=== PATIENT | female | born 1970 | race Caucasian/White ===

== ENCOUNTER 2019-08-09 13:50 | Emergency (ER) | payer OTHER ==
[2019-08-09 14:00] VITALS: BP 150/83; PULSE 76
--- NOTE | 2019-08-09 14:03 | EDM.PDOC ---
ED HPI GENERAL MEDICAL PROBLEM - General Chief Complaint: Chest Pain Stated Complaint: SHORTNESS OF BREATH Time Seen by Provider: 08/09/19 14:03 Source of Information: Reports: Patient History Limitations: Reports: No Limitations - History of Present Illness INITIAL COMMENTS - FREE TEXT/NARRATIVE: patient comes emergency department today from the clinic for further evaluation and care of shortness of breath and palpitations. For the past 2-3 days she feels like her heart is doing "flip-flops" and beating very hard. She does not feel that it is going fast. She has had no weakness dizziness lightheadedness. No headache. No visual disturbances. She feels more short of breath when she gets to the top of the stairs. She has had no recent illness cough congestion sinus congestion sore throat fever chills. Does not have any pain in her chest. She did take some aspirin the last couple of days which she feels helped her symptomology. No abdominal pain no nausea no vomiting. No fever no chills. No diarrhea. She does have a history of hypothyroidism has not had a change in her levothyroxine recently. She has not slept well for the last 6 months he wakes up anywhere from 2-4 times a night and is up for 10-15 minutes at a time and it takes her about 45 minutes to fall asleep. She denies any recent social or family stress. Denies any history of anxiety. She denies any chest pain or pressure. No fatigue or generalized malaise. Left Shoulder Pain Score (Numeric/FACES): 5 - Related Data Allergies Allergy/AdvReac Type Severity Reaction Status Date / Time No Known Allergies Allergy Verified 02/07/16 12:10 Home Meds: Home Meds Levothyroxine Sodium [Synthroid] 125 mcg PO ACBREAKFAST 02/07/16 [History] Past Medical History - Past Surgical History Female Surgical History: Reports: Section Social & Family History - Family History Cardiac: Reports: [facility] ED ROS GENERAL - Review of Systems Review Of Systems: ROS reveals no pertinent complaints other than HPI. ED EXAM, GENERAL - Physical Exam Exam: See Below Exam Limited By: No Limitations General Appearance: Alert, WD/WN, No Apparent Distress Eye Exam: Bilateral Eye: EOMI, Normal Inspection Ears: Normal External Exam Ear Exam: Bilateral Ear: TM normal Nose: Normal Inspection, Normal Mucosa Throat/Mouth: Normal Inspection, Normal Lips Head: Atraumatic, Normocephalic Neck: Normal Inspection, Supple. No: Carotid Bruit Respiratory/Chest: No Respiratory Distress, Lungs Clear, Normal Breath Sounds, No Accessory Muscle Use, Chest Non-Tender Cardiovascular: Normal Peripheral Pulses, Regular Rate, Rhythm GI/Abdominal: Normal Bowel Sounds, Soft, Non-Tender (Female) Exam: Deferred Rectal (Female) Exam: Deferred Back Exam: Normal Inspection, Full Range of Motion Extremities: Normal Inspection, Normal Range of Motion, Normal Capillary Refill Neurological: Alert, Oriented, Normal Cognition, No Motor/Sensory Deficits Psychiatric: Anxious Skin Exam: Warm, Dry, Intact, Normal Color, No Rash EKG INTERPRETATION EKG Date: 08/09/19 Time: 13:57 Rhythm: NSR Rate (Beats/Min): 76 [place]: Normal P-Wave: Present QRS: Normal ST-T: Normal QT: Normal Course - Vital Signs Last Recorded V/S: Last Vital Signs Temp 36.3 C 08/09/19 13:56 Pulse 76 08/09/19 13:56 Resp 18 08/09/19 13:56 BP 150/83 H 08/09/19 13:56 Pulse Ox 97 08/09/19 13:56 - Orders/Labs/Meds Orders: Active Orders 24 hr Category Date Time Status EKG 12 Lead [EKG Documentation Completion] [] URGENT Care 08/09/19 14:04 Active Peripheral IV Care [RC] . DIRECTED Care 08/09/19 14:04 Active Sodium Chloride 0.9% [Saline Flush] Med 08/09/19 14:04 Active 10 ml FLUSH ASDIRECTED PRN Peripheral IV Insertion Adult [OM.PC] Stat Oth 08/09/19 14:04 Ordered Medication Orders Sodium Chloride (Saline Flush) 10 ml FLUSH ASDIRECTED PRN PRN Reason: Keep Vein Open Last Admin: 08/09/19 14:22 Dose: 10 ml Labs: Laboratory Tests 08/09/19 08/09/19 08/09/19 Range/Units 14:10 14:10 14:10 WBC 7.4 (5.0-10.0) 10^3/uL RBC 4.61 (4.2-5.4) 10^6/uL Hgb 13.6 D (12.0-16.0) g/dL Hct 40.2 (37.0-47.0) % MCV 87.2 D (80-100) fL MCH 29.5 (27.0-34.0) pg MCHC 33.8 (33.0-35.0) g/dL Plt Count 291 (150-450) 10^3/uL Neut % (Auto) 62.3 (42.2-75.2) % Lymph % (Auto) 23.0 (20.5-50.1) % [place] % (Auto) 9.4 H (2-8) % Eos % (Auto) 4.9 H (1.0-3.0) % Baso % (Auto) 0.4 (0.0-1.0) % Sodium 138 (135-145) mmol/L Potassium 4.0 (3.6-5.0) mmol/L Chloride 106 (101-111) mmol/L Carbon Dioxide 24.0 (21.0-31.0) mmol/L Anion Gap 12.0 BUN 14 (7-18) mg/dL Creatinine 0.6 (0.6-1.3) mg/dL Est Cr Clr Drug Dosing 96.86 mL/min Estimated GFR (MDRD) > 60 BUN/Creatinine Ratio 23.33 Glucose 91 (74-105) mg/dL Calcium 9.2 (8.4-10.2) mg/dl Total Bilirubin 0.5 (0.2-1.0) mg/dL AST 18 (10-42) IU/L ALT 16 (10-60) IU/L Alkaline Phosphatase 60 (42-121) IU/L Troponin I < 0.02 (0.00-0.02) ng/ml B-Natriuretic Peptide 9 (0-100) pg/ml Total Protein 7.1 (6.7-8.2) g/dl Albumin 4.3 (3.2-5.5) g/dl Globulin 2.8 Albumin/Globulin Ratio 1.54 TSH, Ultra Sensitive 1.64 (0.45-5.33) uIu/mL Meds: Medications Generic Name Dose Route Start Last Admin Trade Name Freq PRN Reason Stop Dose Admin Sodium Chloride 10 ml 08/09/19 14:04 08/09/19 14:22 Saline Flush FLUSH 10 ml ASDIRECTED PRN Administration Keep Vein Open - Radiology Interpretation Free Text/Narrative:: cxr per radiology no acute findings. - Re-Assessments/Exams Free Text/Narrative Re-Assessment/Exam: 08/09/19 16:08 laboratory evaluation is very normal on this patient as well as her chest x-ray and EKG. She has not had any palpitations shortness of breath while she has been here. I did discuss the options of a Holter monitor to evaluate for palpitations. 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 We'll discharge her home with observation at this time and if she has continued symptoms especially palpitations where she feels she is in a passout she needs to be seen primary care setting to get a Holter monitor. She is comfortable with this plan and her questions are answered Departure - Departure Time of Disposition: 16:06 Disposition: Home, Self-Care 01 Clinical Impression: Palpitations Instructions: Palpitations, [id number] Forms: ED Department Discharge Additional Instructions: Drink lots of fluids. Work on outlets of stress. Get good sleep with good sleep hygiene and routines. If continued symptoms of the palpitations see PCP and get a Holter monitor. Return to the ED if new or worsening symptoms. - My Orders Last 24 Hours: My Active Orders 08/09/19 14:04 EKG 12 Lead [EKG Documentation Completion] [RC] URGENT Peripheral IV Care [RC] . DIRECTED Sodium Chloride 0.9% [Saline Flush] 10 ml FLUSH ASDIRECTED PRN Peripheral IV Insertion Adult [OM.PC] Stat - Assessment/Plan Last 24 Hours: My Active Orders 08/09/19 14:04 EKG 12 Lead [EKG Documentation Completion] [RC] URGENT Peripheral IV Care [RC] . DIRECTED Sodium Chloride 0.9% [Saline Flush] 10 ml FLUSH ASDIRECTED PRN Peripheral IV Insertion Adult [OM.PC] Stat Assessment:: Palpitations, ? anxiety Plan: Drink lots of fluids. Work on outlets of stress. Get good sleep with good sleep hygiene and routines. If continued symptoms of the palpitations see PCP and get a Holter monitor. Return to the ED if new or worsening symptoms.
[2019-08-09] MEDS ORDERED: Sodium Chloride 0.9% 10 ML Syringe FLUSH PRN (14:04)
[2019-08-09 14:46] LABS: CHLORIDE,CL 106 mmol/L (101-111); SODIUM,NA 138 mmol/L (135-145)
== END 2019-08-09 16:25 | disposition home or self-care (01) ==
LOC: DL.ED 13:50
DX: R00.2 Palpitations (principal); E03.9 Hypothyroidism, unspecified; Z79.890 Hormone replacement therapy
CPT/HCPCS: 36415; 71046; 80053; 83880; 84443; 84484; 85025; 93005; 99285-25

== ENCOUNTER 2024-12-13 01:49 | Emergency (ER) | payer OTHER ==
[2024-12-13] MEDS: Acetaminophen 325 MG Tab PO ONE (02:21)
[2024-12-13] MEDS: hydrALAZINE 20 MG/ML SDV IVPUSH ONE (02:21)
[2024-12-13 02:24] LABS: BASOPHILS PERCENT AUTO 0.5 % (0.0-1.0); EOSINOPHILS PERCENT AUTO 3.7 % (1.0-3.0); HEMATOCRIT 41.9 % (37.0-47.0); HEMOGLOBIN 13.8 g/dL (12.0-16.0); LYMPHOCYTES PERCENT AUTO 31.5 % (20.5-50.1); MEAN CORPUSCULAR HEMOGLOBIN 28.6 pg (27.0-34.0); MEAN CORPUSCULAR HGB CONC 32.9 g/dL (33.0-35.0); MEAN CORPUSCULAR VOLUME 86.7 fL (80-100); MONOCYTES PERCENT AUTO 10.3 % (2-8); PLATELET COUNT,PLT 303 10^3/uL (150-450); RED BLOOD CELL COUNT 4.83 10^6/uL (4.2-5.4); WHITE BLOOD CELL COUNT,WBC 8.8 10^3/uL (5.0-10.0)
[2024-12-13 02:33] LABS: APPEARANCE,URINE CLEAR (CLEAR); BILIRUBIN,URINE NEGATIVE (NEGATIVE); COLOR,URINE YELLOW (YELLOW); GLUCOSE,URINE NEGATIVE (NEGATIVE); KETONES,URINE NEGATIVE (NEGATIVE); LEUKOCYTE ESTERASE,URINE NEGATIVE (NEGATIVE); NITRITE,URINE NEGATIVE (NEGATIVE); OCCULT BLOOD,URINE NEGATIVE (NEGATIVE); PROTEIN,URINE NEGATIVE (NEGATIVE); UROBILINOGEN,URINE 0.2 mg/dL (0.2-1.0)
[2024-12-13 02:54] LABS: A/G RATIO 1.3; ALANINE AMINOTRANSFERASE,ALT 39 U/L (14-59); ALBUMIN 4.2 g/dL (3.4-5.0); ALKALINE PHOSPHATASE 98 U/L (46-116); ANION GAP 13.8 mEq/L (7-13); ASPARTATE AMNIOTRANSFERASE,AST 18 U/L (15-37); BILIRUBIN TOTAL 0.2 mg/dL (0.2-1.0); BLOOD UREA NITROGEN,BUN 23 mg/dL (7-18); BUN/CREATININE RATIO 31.5 (No establ ref range); C-REACTIVE PROTEIN < 0.50 ng/dL (<=0.50); CALCIUM 9.8 mg/dL (8.5-10.1); CARBON DIOXIDE,CO2 31 mmol/L (21-32); CHLORIDE,CL 100 mmol/L (98-107); CREATININE 0.73 mg/dL (0.55-1.02); EST CRCL DRUG DOSING (CG) 71.18 mL/min; ESTIMATED GFR 96 mL/min (>=60); GLUCOSE RANDOM 108 mg/dL (70-99); MAGNESIUM 1.9 mg/dL (1.8-2.4); POTASSIUM,K 3.8 mmol/L (3.5-5.1); PROTEIN TOTAL,TP 7.5 g/dL (6.4-8.2); SODIUM,NA 141 mmol/L (136-145); T4 FREE 0.99 ng/dL (0.76-1.46); TSH ULTRASENSITIVE 24.59 uIU/mL (0.36-3.74)
[2024-12-13] MEDS: Meclizine 12.5 MG Tab PO ONE (03:41)
[2024-12-13] MEDS: Ketorolac 30 MG/ML SDV IVPUSH ONE (03:42)
[2024-12-13 04:05] VITALS: BP 146/69; PULSE 77
== END 2024-12-13 04:26 | disposition home or self-care (01) ==
LOC: DL.ED 01:49
DX: I16.0 Hypertensive urgency (principal); I10 Essential (primary) hypertension; Z79.890 Hormone replacement therapy; Z90.49 Acquired absence of other specified parts of digestive tract
CPT/HCPCS: 36415; 70450; 71045; 80053; 81003; 83735; 84439; 84443; 84484; 85025; 85651; 86140; 93005; 96374; 96375; 99284; A9270; J0360; J1885